=== PATIENT | male | born 1970 | race Caucasian/White ===

== ENCOUNTER 2019-08-22 09:42 | Emergency (ER) | payer MEDICAID ==
[~2019-08-22] VITALS: Ht 165.1 cm; Wt 136.7 kg
[2019-08-22] MEDS ORDERED: LISI-538 (09:52)
[2019-08-22] MEDS ORDERED: ATOR1TAB21 (09:52)
[2019-08-22] MEDS ORDERED: ALOG25TA (09:52)
[2019-08-22] MEDS ORDERED: FURO20TA2 (09:52)
[2019-08-22] MEDS ORDERED: ELIQ5TAB PO (09:52)
[2019-08-22] MEDS ORDERED: MONT10TA2 (09:52)
[2019-08-22 10:42] LABS: BASO % 0.3 % (0.0-1.0); EOS # 0.1 10^3/uL (0.0-0.5); EOS % 0.7 % (0.0-3.0); HEMATOCRIT 31.9 % (42.0-52.0); HEMOGLOBIN 9.9 g/dl (13.5-17.5); LYMPH # 0.9 10^3/uL (1.5-5.0); LYMPH % 6.9 % (24.0-44.0); MEAN CORPUSCULAR HEMOGLOBIN 29.6 pg (27.0-33.0); MEAN CORPUSCULAR VOLUME 95.5 fl (80.0-96.0); MONO # 1.5 10^3/uL (0.0-0.8); MONO % 11.3 % (0.0-5.0); NEUTROPHILS # 10.3 10^3/uL (1.5-8.5); NEUTROPHILS % 79.9 % (36.0-66.0); PLATELET COUNT, AUTOMATED 729 10^3/uL (150-450); RED BLOOD COUNT 3.34 10^6/uL (4.30-6.10); WHITE BLOOD COUNT 12.8 10^3/uL (4.0-10.0)
[2019-08-22 10:54] LABS: INR 1.64; PROTHROMBIN TIME 19.1 SECONDS (11.8-14.0)
[2019-08-22 11:08] LABS: ALT/SGPT 61 U/L (12-78); BILIRUBIN,DIRECT 3.1 MG/DL (0.0-0.2); BILIRUBIN,TOTAL 3.8 MG/DL (0.2-1.0); BLOOD UREA NITROGEN 13 MG/DL (7-18); CALCIUM LEVEL 9.1 MG/DL (8.5-10.1); CARBON DIOXIDE LEVEL 34 MEQ/L (21-32); CHLORIDE LEVEL 90 MEQ/L (98-107); CREATININE FOR GFR 0.89 MG/DL (0.70-1.30); GLOMERULAR FILTRATION RATE > 60.0 (>60); GLUCOSE, FASTING 178 MG/DL (70-100); LIPASE 181 U/L (73-393); POTASSIUM SERUM 4.6 MEQ/L (3.5-5.1); SODIUM LEVEL 133 MEQ/L (136-145); TOTAL PROTEIN 7.3 GM/DL (6.4-8.2)
--- NOTE | 2019-08-22 11:23 | REP ---
Clinical: Chest pain. Comparison: None. Findings: Coarsened interstitial markings and subtle basilar opacities (left greater than right) suggest bronchitis and minimal atelectasis. No effusion. No pneumothorax. Skeletal structures intact. Impression: Findings suggesting bronchitis and minimal basilar atelectasis. No focal consolidation or effusion. Electronically Signed by Chad Wesley MD 08/22/2019 11:14 A
[2019-08-22 11:28] LABS: CK-MB VALUE MASS < 1.0 NG/ML (<3.6); CPK CREATINE PHOSPHOKINASE 58 U/L (39-308); MB/CK RELATIVE INDEX 1.72 (< OR =4); TROPONIN I < 0.02 NG/ML (< 0.10)
[2019-08-22] MEDS ORDERED: ISOVUE-370 76% 100ML VIAL (Q9967) As Ordered ONE (11:28)
[2019-08-22] MEDS ORDERED: NS 500 ML IV ONE (11:30)
[2019-08-22] MEDS ORDERED: ONDANSETRON 4MG/2ML VIAL (J2405) IV ONE (11:30)
[2019-08-22] MEDS ORDERED: GI COCKTAIL 50ML BTL(HYOSCYAMINE/MAALOX/LIDOCAINE VISCOUS)(1:3:1) PO ONE (11:30)
[2019-08-22] MEDS ORDERED: KETOROLAC 30 MG/ML VIAL (J1885) IV ONE (12:00)
--- NOTE | 2019-08-22 12:00 | REP ---
Clinical: Acute chest pain. Technique: Axial contrast enhanced images from the thoracic inlet to the upper abdomen using 100 ml Isovue 370 intravenous contrast material with coronal and sagittal re-formations. Comparison: None. Findings: Satisfactory enhancement of the pulmonary vasculature is achieved and filling defects are identified within the left upper lobe pulmonary arteries consistent with pulmonary embolus. Bibasilar atelectasis and small left lower lobe/lingular consolidations are appreciated. No effusion. No pneumothorax. Thoracic aorta is normal caliber without aneurysm or dissection. Heart and pericardium are normal. No adenopathy. Limited upper abdomen demonstrates incompletely visualized large fluid collections consistent with pseudocysts having mass effect on the stomach along with moderate amount of free fluid in the visualized mid to left upper abdomen. Findings are compatible with pancreatitis and consistent with the given history. Impression: 1. Pulmonary emboli extending into the left upper lobe. 2. Bibasilar atelectasis and small left lower lobe/lingular consolidations. 3. Limited evaluation of the upper abdomen demonstrates large pseudocysts, free fluid, reactive adenopathy and inflammatory stranding consistent with the given history of pancreatitis. Electronically Signed by Chad Wesley MD 08/22/2019 11:51 A
--- NOTE | 2019-08-22 12:12 | REP ---
Clinical: Abdominal pain. History pancreatitis. Technique: Axial contrast enhanced images from the lung bases to the pubic symphysis using 100 ml Isovue 370 intravenous contrast material with coronal and sagittal re-formations. Findings: Large fluid collection, free fluid, inflammatory stranding, and reactive adenopathy is appreciated in the mid to upper abdomen extending into the left upper quadrant and consistent with a history of acute pancreatitis. Fluid collection/pseudocyst measuring greater than 20.8 x 13.3 x 15.5 cm fills the lesser sac and causes mass effect and anterior displacement to the stomach. There is homogeneous normal enhancement of the pancreatic head and uncinate process with suspected necrosis to the body/tail of the pancreas. Considerable edema and inflammatory changes are noted throughout the subcutaneous tissues of the anterior abdominopelvic wall. Liver, spleen, bilateral adrenal glands and kidneys are normal. The gallbladder is mildly distended and there is evidence for intrahepatic and extrahepatic biliary ductal dilatation. There is no evidence for bowel obstruction and no free air to suggest bowel perforation. Evidence of prior small bowel anastomoses noted in the anterior mid abdomen. Abdominal aorta and vasculature appears relatively normal. Pelvis demonstrates collapsed bladder and age appropriate prostate/seminal vesicles. Impression: 1. Severe pancreatitis with a grading score of 10 including multiple peripancreatic fluid collections and greater than 50% pancreatic necrosis. Electronically Signed by Chad Wesley MD 08/22/2019 12:03 P
[2019-08-22] MEDS ORDERED: PERC5TAB12 PO (13:52)
[2019-08-22] MEDS ORDERED: ONDA4TAB6 PO (13:52)
[2019-08-22 13:56] VITALS: BP 108/63
--- NOTE | 2019-08-23 15:29 | ECGEPIP ---
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
--- NOTE | 2019-08-24 07:47 | ED PDOC ---
Post-Departure Follow-Up dr cardenas faxed formal report of ct chest and abd/p for fu Yee Ribera MD Aug 24, 2019 07:47
== END 2019-08-22 14:12 | disposition home or self-care (01) ==
LOC: M ED 09:42
DX: K86.3 Pseudocyst of pancreas (principal); I26.99 Other pulmonary embolism without acute cor pulmonale; R00.0 Tachycardia, unspecified; Z79.01 Long term (current) use of anticoagulants; Z79.899 Other long term (current) drug therapy
CPT/HCPCS: 71045; 71275; 74177; 80048; 80076; 82550; 82553; 83690; 85025; 85610; 93005; 93041; 94760; 96361; 96374; 96375; 99285; J1885; J2405; Q9967

== ENCOUNTER → 2020-06-06 | Outpatient (CLI) | payer OTHER ==
[~2020-06-06] MED LIST: ALOG25TA; ATOR1TAB21; ELIQ5TAB PO; FURO20TA2; LISI-538; MONT10TA4; ONDA4TAB6 PO; PERC5TAB12 PO
--- NOTE | 2020-06-09 13:36 | REP ---
URINARY TRACT SONOGRAPHY HISTORY: Chronic kidney disease stage III. FINDINGS: Scanning at the level of the urinary bladder shows smooth bladder edge. Bladder not totally filled. Renal cortical echogenicity is normal and contours are smooth bilaterally. Right renal dimensions are 13.1 x 5.3 x 5.3 cm. The left kidney measures 12.8 x 4.5 x 6.3 cm. No cyst, mass, calculus or hydronephrosis is seen on either side. IMPRESSION: Normal urinary tract sonography. MTDD
== END ==
LOC: M RAD 15:06
PROVIDERS: ATTEND Internal Medicine Nephrology
DX: N18.30 Chronic kidney disease, stage 3 unspecified (principal)

== ENCOUNTER → 2020-07-04 | Outpatient (REF) | payer OTHER ==
[2020-07-04 19:05] LABS: BACTERIA, URINE AUTO NEGATIVE (NEGATIVE); RBC, URINE AUTO 18 /HPF (0-3); SQUAMOUS EPITHELIAL CELL UR AU 0 /HPF (0-6); WBC, URINE AUTO 1 /HPF (0-3)
== END ==
LOC: M LAB REF 16:54
PROVIDERS: ATTEND Internal Medicine Nephrology
DX: R31.29 Other microscopic hematuria (principal)

== ENCOUNTER → 2020-11-03 | Outpatient (REF) | payer OTHER ==
[~2020-11-03] MED LIST changes: -LISI-538; +LISI20TA33; +MONT10TA10; -MONT10TA4
[2020-11-03 17:08] LABS: BACTERIA, URINE AUTO NEGATIVE (NEGATIVE); RBC, URINE AUTO 7 /HPF (0-3); SQUAMOUS EPITHELIAL CELL UR AU 0 /HPF (0-6); WBC, URINE AUTO 1 /HPF (0-3)
== END ==
LOC: M LAB REF 16:46
PROVIDERS: ATTEND Internal Medicine Nephrology
DX: N18.2 Chronic kidney disease, stage 2 (mild) (principal)

== ENCOUNTER → 2020-12-02 | Outpatient (CLI) | payer OTHER ==
[~2020-12-02] MED LIST changes: +ADME100I2; +BASA100I; +CREO6000 PO; +D31000TA2; +DULO1CAP5; +FOLI1TAB11 PO; +MAGN400C2 PO; +METF-838; +POTA1TAB14; +STEG5TAB PO
== END ==
LOC: M LABSMTC 10:28
PROVIDERS: ATTEND Anesthesiology
DX: Z01.812 Encounter for preprocedural laboratory examination (principal); Z20.828 Contact with and (suspected) exposure to other viral communicable diseases

== ENCOUNTER 2020-12-07 06:23 | Day surgery (SDC) | payer OTHER ==
[~2020-12-07] VITALS: Ht 165.1 cm; Wt 87.0 kg
[2020-12-07] MEDS ORDERED: LIDOCAINE W/EPINEPHRINE 1% 20ML VIAL As Ordered ONE (07:12)
[2020-12-07 07:32] LABS: BLOOD UREA NITROGEN 21 MG/DL (7-18); CALCIUM LEVEL 9.3 MG/DL (8.5-10.1); CARBON DIOXIDE LEVEL 29 MEQ/L (21-32); CHLORIDE LEVEL 103 MEQ/L (98-107); GLOMERULAR FILTRATION RATE > 60.0 (>56); GLUCOSE, FASTING 244 MG/DL (70-100); POTASSIUM SERUM 4.1 MEQ/L (3.5-5.1); SODIUM LEVEL 136 MEQ/L (136-145)
[2020-12-07] MEDS ORDERED: ROCURONIUM BROMIDE 50 MG/5 ML VIAL As Ordered ONE (07:42)
[2020-12-07] MEDS ORDERED: SUCCINYLCHOLINE 100 MG/5 ML SYRINGE (J0330) As Ordered ONE (07:42)
[2020-12-07] MEDS ORDERED: MIDAZOLAM INJ 2MG/2ML VIAL (J2250 PER 1MG) As Ordered ONE (07:42)
[2020-12-07] MEDS ORDERED: LIDOCAINE 2% 100MG/5ML SDV (FOR ANES.) As Ordered ONE (07:42)
[2020-12-07] MEDS ORDERED: ONDANSETRON 4MG/2ML VIAL As Ordered ONE (07:42)
[2020-12-07] MEDS ORDERED: fentaNYL 100 MCG/2 ML INJECTION (J3010) As Ordered ONE (07:42)
[2020-12-07] MEDS ORDERED: propofoL 200 MG/20 ML VIAL As Ordered ONE (07:42)
[2020-12-07] MEDS ORDERED: dexameTHASONE 4 MG/ML 1ML VIAL (J1100 PER 1MG) As Ordered ONE (07:42)
[2020-12-07] MEDS ORDERED: PHENYLephrine 500MCG 5ML (100MCG/ML) SYRINGE As Ordered ONE (07:51)
[2020-12-07] MEDS ORDERED: ePHEDrine SULFATE 25 MG/5 ML(5MG/ML) SYRINGE As Ordered ONE (07:55)
[2020-12-07] MEDS ORDERED: VASOPRESSIN INJ 20 UNITS/ML VIAL As Ordered ONE (08:01)
[2020-12-07] MEDS ORDERED: SUGAMMADEX SODIUM 500 MG/5 ML VIAL (BRIDION) As Ordered ONE (08:03)
[2020-12-07] MEDS ORDERED: KETOROLAC 60MG 2ML VIAL As Ordered ONE (08:05)
[2020-12-07] MEDS ORDERED: MEPERIDINE INJ 25 MG/ML VIAL (J2175) IV PRN (08:35)
[2020-12-07] MEDS ORDERED: METOCLOPRAMIDE INJ 10MG/2ML VIAL (J2765 PER 1) IV PRN (08:35)
[2020-12-07] MEDS ORDERED: LR 1,000 ML IV SCH ×2 (08:35→08:40)
[2020-12-07] MEDS ORDERED: fentaNYL 100 MCG/2 ML INJECTION (J3010) IV PRN (08:35)
[2020-12-07] MEDS ORDERED: PERCOCET 5MG/325MG TAB PO PRN (08:35)
[2020-12-07] MEDS ORDERED: ONDANSETRON 4MG/2ML VIAL IV PRN (08:35)
[2020-12-07] MEDS ORDERED: ACETAMINOPH W/CODEINE #3 TAB UD PO PRN (08:40)
[2020-12-07 09:15] VITALS: BP 117/76
--- NOTE | 2020-12-07 12:06 | RO ---
OPERATIVE NOTE DATE OF OPERATION: 12/07/2020 PREOPERATIVE DIAGNOSIS: Trachea stoma. POSTOPERATIVE DIAGNOSIS: Trachea stoma. OPERATIVE PROCEDURE: Closure of trachea stoma. SURGEON: Syd Enamorado M.D. AZURE PRINCIPAL SOLUTION SPECIALIST: None. ANESTHESIA: General. DESCRIPTION OF PROCEDURE: Under general anesthesia the patient is intubated and the patient draped in the usual manner. I infiltrated with Lidocaine and epinephrine. I made an incision around the stoma and then laterally. I divided the skin and subcutaneous tissues. I elevated superiorly and inferiorly. Bleeding was controlled with cautery. I then dissected around the trachea stoma tract. Then I used cautery to remove the trachea stoma tract. There was very little bleeding. I closed the wound with interrupted 4-0 Vicryl and then 4-0 Prolene suture. The patient tolerated the procedure well. No blood loss. Patient extubated and transferred to the recovery room in excellent condition.
--- NOTE | 2020-12-07 23:59 | ECGEPIP ---
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
== END 2020-12-07 09:28 | disposition home or self-care (01) ==
LOC: M SDC 06:23
PROVIDERS: ATTEND Otolaryngology
DX: J95.09 Other tracheostomy complication (principal); I10 Essential (primary) hypertension; E11.9 Type 2 diabetes mellitus without complications; Z87.891 Personal history of nicotine dependence; Z79.4 Long term (current) use of insulin; G47.30 Sleep apnea, unspecified; Z79.84 Long term (current) use of oral hypoglycemic drugs; Z79.899 Other long term (current) drug therapy
CPT/HCPCS: 31825; 36415; 80048; 93005; J0330; J1100; J1885; J2250; J2370; J2405; J3010

== ENCOUNTER → 2021-01-24 | Outpatient (REF) | payer OTHER | LOC: M LAB REF 11:07 | PROVIDERS: ATTEND Otolaryngology | DX: Z43.0 Encounter for attention to tracheostomy (principal) ==

== ENCOUNTER → 2021-06-01 | Outpatient (REF) | payer OTHER ==
[2021-06-01 13:23] LABS: AMORPHOUS SEDIMENT SMALL (NEGATIVE); BACTERIA, URINE AUTO NEGATIVE (NEGATIVE); MUCUS, URINE SMALL (NEGATIVE); RBC, URINE AUTO 4 /HPF (0-3); SQUAMOUS EPITHELIAL CELL UR AU 0 /HPF (0-6); WBC, URINE AUTO 1 /HPF (0-3)
== END ==
LOC: M LAB REF 12:50
PROVIDERS: ATTEND Internal Medicine Nephrology
DX: N18.2 Chronic kidney disease, stage 2 (mild) (principal); E11.22 Type 2 diabetes mellitus with diabetic chronic kidney disease